=== PATIENT | female | born 1970 | race Caucasian/White ===

== ENCOUNTER 2019-03-09 07:30 | Emergency (ER) | payer MEDICAID, SELFPAY ==
[2019-03-09 07:35] VITALS: BP 145/92; PULSE 96; RESP 18; TEMP 36.4; O2SAT 100
--- NOTE | 2019-03-09 08:31 | W.ED.GENAD ---
Discharge Plan Disposition Patient Disposition: HOME Discharge Details Chief Complaint: PsychEval Clinical Impression: Homelessness, Anxiety Primary Care Provider: Hank Delarosa ED Provider: Lane Wilde Home Meds and New Rx's Prescriptions: Continued meloxicam 15 mg Tablet 15 mg PO DAILY RF: 0 Prilosec OTC 20 mg Tablet,Delayed Release (Dr/Ec) 20 mg PO DAILY RF: 0 Discharge Instructions Instructions: Anxiety (ED) Additional Instructions: Please contact your primary care physician to arrange follow-up. Return to the ER for any worsening or new concerning symptoms. Referrals: Hank Delarosa [Primary Care Provider] - Discharge Data Discharge Date/Time-TO BE ENTERED AT DEPARTURE: 03/09/19 09:50 Medical Decision Making 8:38 -- A medical screening exam was performed. 48-year-old female arrives after being discharged from [facility] at 4 AM this morning without proper clothing or transportation back to homeless intermediate. Patient with statement of conditional suicidality to law enforcement. Patient is not suicidal. She is anxious and depressed about her current living situation. She is here requesting assistance with identifying a intermediate for today as well as transportation. Patient was provided breakfast. Care management was consulted to assist with discharge planning. 9:42 -- Patient seen by care management. Assisting in arranging intermediate. Clothing including jacket provided. HPI General Mode of arrival: EMS. Date/Time Provider Initiated Documentation: 03/09/19 07:33. Limitations to Documentation: no limitations. Information obtained by: patient and EMS. HPI Narrative: 48-year-old female with history of anxiety disorder, fibromyalgia, arthritis, presents with a chief complaint of anxiety. Patient [facility] after being detained by law enforcement for alcohol use at intermediate in [place]. Patient notes she was released at 4 AM this morning and had no transportation or appropriate clothing. She called police and [facility] PD responded. She told police that if she could not find a way home she would kill herself. She now notes that she is feeling much better. She denies suicidality. She is here voluntarily. She has no associated homicidality. She is anxious and depressed and worried about her current living situation. She is been homeless since July living with friends/family intermittently and staying in shelters. She does not feel like she has any social support that is reliable. She does not feel that being with family is a safe situation for her - multiple people in household with substance abuse disorder. She is here now specifically requesting assistance with identifying a intermediate and transportation. Related Data Home Medications Medication Instructions Recorded Confirmed Prilosec OTC 20 mg PO DAILY 03/09/19 03/09/19 meloxicam 15 mg PO DAILY 03/09/19 03/09/19 Allergies Allergy/AdvReac Type Severity Reaction Status Date / Time Penicillins Allergy Hives Unverified 03/09/19 07:34 haloperidol [From Haldol] AdvReac makes me Unverified 03/09/19 07:34 crazy General Stated Complaint: PsychEval KYLE: 2 Review of Systems Psychiatric Reports anxiety, Reports depression and Denies suicidal ideation [facility] Social History Smoking/Tobacco Use Status: Current-Occasional Substance use type: does not use Additional Social history: Homeless Exam Const General: cooperative and no acute distress HENMT Head: normocephalic Mouth: moist mucous membranes Eyes Conjunctivae: normal conjunctivae Sclera: normal sclerae Resp Auscultation: clear to auscultation bilaterally, no rales, no rhonchi and no wheezes Cardio Jugular venous pressure: no JVD Rate: regular rate and not tachycardic Rhythm: regular rhythm GI Palpation: soft, not firm, no guarding, no masses, not rigid and nontender Neuro General: alert, awake, oriented x3 and tone normal Extrem General: no edema Psych Appearance: grossly normal Mental Status: mental status grossly normal Speech and Movement: speech and movement normal Mood: anxious mood Affect: normal affect Attitude: cooperative Thought Process: normal Thought Content: normal Insight: insight good Judgment: judgment good Course Vital Signs Temperature 36.4 C L 03/09/19 07:35 Pulse 96 H 03/09/19 07:35 Respiratory Rate 18 03/09/19 07:35 Blood Pressure 145/92 H 03/09/19 07:35 Pulse Oximetry 100 03/09/19 07:35 Temperature 36.4 C L 03/09/19 07:35 Temperature Source Temporal Artery Scan 03/09/19 07:35 Pulse 96 H 03/09/19 07:35 Respiratory Rate 18 03/09/19 07:35 Blood Pressure 145/92 H 03/09/19 07:35 Blood Pressure Position Sitting 03/09/19 07:35 Pulse Oximetry 100 03/09/19 07:35 Oxygen Delivery Method Room Air 03/09/19 07:35 Oxygen Flow Rate 0 03/09/19 07:35 Lab/Test Results Lab/Test Results: POC- Test(urine) Negative
--- NOTE | 2019-03-09 08:39 | ED.GENADUL_ITS ---
Discharge Plan Disposition Patient Disposition: HOME Discharge Details Chief Complaint: PsychEval Clinical Impression: Homelessness, Anxiety Primary Care Provider: Hank Delarosa ED Provider: Lane Wilde Home Meds and New Rx's Prescriptions: Continued meloxicam 15 mg Tablet 15 mg PO DAILY RF: 0 Prilosec OTC 20 mg Tablet,Delayed Release (Dr/Ec) 20 mg PO DAILY RF: 0 Discharge Instructions Instructions: Anxiety (ED) Additional Instructions: Please contact your primary care physician to arrange follow-up. Return to the ER for any worsening or new concerning symptoms. Referrals: Hank Delarosa [Primary Care Provider] - Discharge Data Discharge Date/Time-TO BE ENTERED AT DEPARTURE: 03/09/19 09:50 Medical Decision Making 8:38 -- A medical screening exam was performed. 48-year-old female arrives after being discharged from [facility] at 4 AM this morning without proper clothing or transportation back to homeless senior care. Patient with statement of conditional suicidality to law enforcement. Patient is not suicidal. She is anxious and depressed about her current living situation. She is here requesting assistance with identifying a senior care for today as well as transportation. Patient was provided breakfast. Care management was consulted to assist with discharge planning. 9:42 -- Patient seen by care management. Assisting in arranging senior care. Clothing including jacket provided. HPI General Mode of arrival: EMS . Date/Time Provider Initiated Documentation: 03/09/19 07:33 . Limitations to Documentation: no limitations . Information obtained by: patient and EMS . HPI Narrative: 48-year-old female wi th history of anxiety disorder, fibromyalgia, arthritis, presents with a chief complaint of anxiety. Patient [facility] after being detained by law enforcement for alcohol use at senior care in [place]. Patient notes she was released at 4 AM this morning and had no transportation or appropriate clothing. She called police and [facility] responded. She told police that if she could not find a way home she would kill herself. She now notes that she is feeling much better. She denies suicidality. She is here voluntarily. She has no associated homicidality. She is anxious and depressed and worried about her current living situation. She is been homeless since July living with friends/family intermittently and staying in shelters. She does not feel like she has any social support that is reliable. She does not feel that being with family is a safe situation for her - multiple people in household with substance abuse disorder. She is here now specifically requesting assistance with identifying a senior care and transportation. Related Data Home Medications Medication Instructions Recorded Confirmed Prilosec OTC 20 mg PO DAILY 03/09/19 03/09/19 meloxicam 15 mg PO DAILY 03/09/19 03/09/19 Allergies Allergy/AdvReac Type Severity Reaction Status Date / Time Penicillins Allergy Hives Unverified 03/09/19 07:34 haloperidol [From Haldol] AdvReac makes me Unverified 03/09/19 07:34 crazy General Stated Complaint: PsychEval KLYE: 2 Review of Systems Psychiatric Reports anxiety, Reports depression and Denies suicidal ideation [facility] Social History Smoking/Tobacco Use Status: Current-Occasional Substance use type: does not use Additional Social history: Homeless Exam Const General: cooperative and no acute distress HENMT Head: normocephalic Mouth: moist mucous membranes Eyes Conjunctivae: normal conjunctivae Sclera: normal sclerae Resp Auscultation: clear to auscultation bilaterally, no rales, no rhonchi and no wheezes Cardio Jugular venous pressure: no JVD Rate: regular rate and not tachycardic Rhythm: regular rhythm GI Palpation: soft, not firm, no guarding, no masses, not rigid and nontender Neuro General: alert, awake, oriented x3 and tone normal Extrem General: no edema Psych Appearance: grossly normal Mental Status: mental status grossly normal Speech and Movement: speech and movement normal Mood: anxious mood Affect: normal affect Attitude: cooperative Thought Process: normal Thought Content: normal Insight: insight good Judgment: judgment good Course Vital Signs Temperature 36.4 C L 03/09/19 07:35 Pulse 96 H 03/09/19 07:35 Respiratory Rate 18 03/09/19 07:35 Blood Pressure 145/92 H 03/09/19 07:35 Pulse Oximetry 100 03/09/19 07:35 Temperature 36.4 C L 03/09/19 07:35 Temperature Source Temporal Artery Scan 03/09/19 07:35 Pulse 96 H 03/09/19 07:35 Respiratory Rate 18 03/09/19 07:35 Blood Pressure 145/92 H 03/09/19 07:35 Blood Pressure Position Sitting 03/09/19 07:35 Pulse Oximetry 100 03/09/19 07:35 Oxygen Delivery Method Room Air 03/09/19 07:35 Oxygen Flow Rate 0 03/09/19 07:35 Lab/Test Results Lab/Test Results: POC- Test(urine) Negative
[2019-03-09] MEDS: Mylanta Suspension 30 ML CUP PO (09:40)
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
== END 2019-03-09 09:50 | disposition home or self-care (01) ==
PROVIDERS: Emergency Provider Student in an Organized Health Care Education/Training Program; PCP Family Medicine
DX: F41.8 Other specified anxiety disorders (principal); Z59.0 Homelessness
CPT/HCPCS: 81025; 99284